=== PATIENT | male | born 1955 | race Caucasian/White ===

== ENCOUNTER → 2017-07-27 | Outpatient (CLI) | payer BC ==
[2017-07-27 13:57] LABS: BLOOD UREA NITROGEN 18 mg/dl (7-18); CREATININE 1.32 mg/dl (0.60-1.40)
== END | disposition home or self-care (01) ==
LOC: C.LAB 12:53
PROVIDERS: ATTEND Urology
DX: R39.12 Poor urinary stream (principal)

== ENCOUNTER → 2017-12-11 | Outpatient (CLI) | payer BC ==
[~2017-12-11] MED LIST: ASPI81TA28 PO; ATOR-22 PO; CALC500C3 PO; CIPR1TAB10 PO; CLC100 PO; DTR5 PO; ENAL10TA88 PO; OXYC7.5T62 PO
[2017-12-11 12:44] LABS: BLOOD UREA NITROGEN 12 mg/dl (7-18)
== END | disposition home or self-care (01) ==
LOC: C.LAB 11:14
PROVIDERS: ATTEND Urology
DX: N52.9 Male erectile dysfunction, unspecified (principal)